=== PATIENT | male | born 1990 | race African-American/Black ===

== ENCOUNTER 2018-03-19 04:45 | Emergency (ER) | payer MEDICAID ==
[~2018-03-19] VITALS: Ht 167.6 cm; Wt 59.0 kg
[2018-03-19] MEDS ORDERED: MORPHINE SULFATE 4 MG/ML CPJ (NOT FOR IM USE) IV STA (05:24)
[2018-03-19] MEDS ORDERED: ONDANSETRON HCL 4MG/2ML VIAL IV STA (05:24)
[2018-03-19] MEDS ORDERED: FAMOTIDINE 20MG/2ML VIAL IV STA (05:24)
[2018-03-19] MEDS ORDERED: SODIUM CHLORIDE 0.9% 1,000 ML IV ONE (05:24)
[2018-03-19] MEDS ORDERED: LEVETIRACETAM 500MG PREMIX 100 ML IV ONE (05:30)
[2018-03-19 06:22] LABS: BASOPHILS % 0.4 % (0.0-2.0); EOSINOPHILS % 0.5 % (0.0-5.0); HEMATOCRIT. 42.7 % (42.0-52.0); HEMOGLOBIN. 14.6 g/dL (14.0-18.0); LYMPHOCYTES % 16.3 % (20.0-50.0); MEAN CORPUSCULAR VOLUME 96.2 fL (80.0-94.0); MEAN PLATELET VOLUME 8.2 fl (7.4-10.4); NEUTROPHILS % 78.8 % (40.0-76.0); PLATELET 249 x1000/uL (130-400); RED BLOOD CELL COUNT 4.44 mill/uL (4.7-6.1); RED CELL DISTRIBUTION WIDTH 12.7 % (11.6-14.6)
[2018-03-19 06:29] LABS: PROTHROMBIN TIME 10.3 sec (9.4-11.6)
[2018-03-19 06:35] LABS: AMMONIA 19 uMol/L (<32)
[2018-03-19 06:36] LABS: CHLORIDE 105 mEq/L (98-107)
[2018-03-19 06:40] LABS: ETHANOL BLOOD < 10 mg/dL
[2018-03-19 06:45] LABS: CREATINE KINASE 109 IU/L (39-308)
[2018-03-19 06:53] LABS: CARBAMAZEPINE < 0.5 ug/mL (4-12); PHENOBARBITAL < 2.1 ug/mL (15.0-40.0); VALPROIC ACID < 3.0 ug/mL (50-100)
[2018-03-19] MEDS ORDERED: PANTOPRAZOLE SODIUM 40 MG/VIAL IV ONE (08:30)
[2018-03-19] MEDS ORDERED: MAGNESIUM/ALUMINUM HYDROXIDE/SIMETHICONE 30ML UDC PO ONE (08:30)
[2018-03-19 08:45] LABS: HEMATOCRIT. 42.4 % (42.0-52.0); HEMOGLOBIN. 14.3 g/dL (14.0-18.0); MEAN CORPUSCULAR HEMOGLOBIN 32.7 pg (28.0-32.0); MEAN CORPUSCULAR VOLUME 97.1 fL (80.0-94.0); MEAN PLATELET VOLUME 8.1 fl (7.4-10.4); PLATELET 218 x1000/uL (130-400); RED BLOOD CELL COUNT 4.37 mill/uL (4.7-6.1); RED CELL DISTRIBUTION WIDTH 12.7 % (11.6-14.6)
[2018-03-19 09:58] LABS: PLATELET ESTIMATE NORMAL
[2018-03-19 10:25] VITALS: BP 130/74
== END 2018-03-19 10:38 | disposition home or self-care (01) ==
LOC: EDBD 04:45 → ER 04:45 → CANBEDREQ 03-27 14:17
DX: G40.909 Epilepsy, unspecified, not intractable, without status epilepticus (principal); R10.33 Periumbilical pain; F12.10 Cannabis abuse, uncomplicated
CPT/HCPCS: 36415; 71045; 74176; 80053; 80156; 80165; 80184; 80185; 82140; 82550; 83605; 83690; 84443; 85025; 85610; 96365; 96375; 99285; C9113; G0482; J1953; J2270; J2405; J3490; J7030; 96367

== ENCOUNTER 2019-01-23 06:54 | Inpatient (IN) | payer MEDICAID ==
[~2019-01-23] VITALS: Ht 170.2 cm; Wt 57.8 kg
[2019-01-23] MEDS ORDERED: LORAZEPAM 2MG/ML CPJ IV ONE (08:00)
[2019-01-23 08:18] LABS: HEMATOCRIT. 44.3 % (42.0-52.0); HEMOGLOBIN. 14.4 g/dL (14.0-18.0); MEAN CORPUSCULAR HEMOGLOBIN 33.1 pg (28.0-32.0); MEAN CORPUSCULAR VOLUME 102.1 fL (80.0-94.0); MEAN PLATELET VOLUME 8.7 fl (7.4-10.4); PLATELET 225 x1000/uL (130-400); RED BLOOD CELL COUNT 4.34 mill/uL (4.7-6.1); RED CELL DISTRIBUTION WIDTH 13.4 % (11.6-14.6)
[2019-01-23 08:20] LABS: CHLORIDE 112 mEq/L (98-107)
[2019-01-23 08:24] LABS: ETHANOL BLOOD < 10 mg/dL
[2019-01-23] MEDS ORDERED: SODIUM CHLORIDE 0.9% 1000ML BAG (SEPSIS BOLUS) IV ONE (08:30)
[2019-01-23 08:40] LABS: PLATELET ESTIMATE NORMAL
[2019-01-23 09:12] LABS: PROTHROMBIN TIME 10.4 sec (9.6-11.0)
[2019-01-23] MEDS ORDERED: LEVETIRACETAM 500MG PREMIX 100 ML IV ONE (09:15)
[2019-01-23] MEDS ORDERED: ONDANSETRON HCL 4MG/2ML INJ IV STA (10:27)
[2019-01-23 10:32] LABS: *AMPHETAMINES SCREEN URINE NEGATIVE (NEGATIVE); *BARBITURATES SCREEN URINE NEGATIVE (NEGATIVE); *BENZODIAZEPINES SCREEN URINE NEGATIVE (NEGATIVE); *COCAINE SCREEN URINE NEGATIVE (NEGATIVE); METHADONE URINE SCREEN NEGATIVE (NEGATIVE); OPIATES URINE SCREEN NEGATIVE (NEGATIVE); PHENCYCLIDINE URINE SCREEN NEGATIVE (NEGATIVE)
[2019-01-23 10:33] LABS: CANNABINOID URINE SCREEN PRESUMTIVE POSITIVE (NEGATIVE)
[2019-01-23] MEDS ORDERED: CEFTRIAXONE 1 G PREMIX 50 ML IV ONE (10:45)
[2019-01-23 15:09] LABS: CLARITY URINE CLEAR (CLEAR); COLOR URINE YELLOW (YELLOW); KETONES URINE TRACE (NEGATIVE); LEUKOCYTE ESTERASE URINE NEGATIVE (NEGATIVE); NITRITE URINE NEGATIVE (NEGATIVE); OCCULT BLOOD URINE 1+ (NEGATIVE); PROTEIN URINE TRACE (NEGATIVE); SPECIFIC GRAVITY URINE 1.012 (1.005-1.030); UROBILINOGEN URINE 0.2 E.U./dL (0.2-1.0)
[2019-01-23 16:00] VITALS: BP 103/57
[2019-01-23 17:20] VITALS: BP 103/57
[2019-01-23] MEDS: MULTIVITAMINS,THER W-MINERALS TABLET PO SCH (18:37)
[2019-01-23] MEDS: FOLIC ACID 1MG TABLET PO SCH (18:37)
[2019-01-23] MEDS: THIAMINE HCL 100MG TABLET PO SCH (18:37)
[2019-01-23] MEDS ORDERED: CHLORPROMAZINE HCL 25MG/1ML AMP IM PRN (18:45)
[2019-01-23] MEDS ORDERED: IPRATROPIUM/ALBUTEROL 0.5-3(2.5)MG/3ML NEB INH PRN (19:15)
[2019-01-23] MEDS ORDERED: ACETAMINOPHEN 325MG TABLET PO PRN (19:15)
[2019-01-23] MEDS ORDERED: ONDANSETRON HCL 4MG/2ML INJ IV PRN (19:15)
[2019-01-23] MEDS ORDERED: LEVE750T4 MT (19:29)
[2019-01-23 20:00] VITALS: BP 118/70
[2019-01-23] MEDS ORDERED: PANTOPRAZOLE SODIUM 40 MG/VIAL IV SCH (21:00)
[2019-01-23] MEDS ORDERED: POTASSIUM CHLORIDE 20MEQ/PACKET PO NR (21:45)
[2019-01-23] MEDS: ENOXAPARIN 40MG/0.4ML SYR SUBCUT SCH (21:54)
[2019-01-23] MEDS: SODIUM CHLORIDE 0.9% 1,000 ML IV SCH (21:55)
[2019-01-23] MEDS: LEVETIRACETAM 500MG TABLET PO SCH (22:14)
[2019-01-23 23:01] LABS: CHLORIDE 105 mEq/L (98-107)
[2019-01-23 23:11] LABS: CREATINE KINASE 417 IU/L (39-308)
[2019-01-24 00:29] VITALS: BP 112/52
[2019-01-24] MEDS: SODIUM CHLORIDE 0.9% 1,000 ML IV SCH ×3 (01:46→15:06)
[2019-01-24 07:14] LABS: BASOPHILS % 0.4 % (0.0-2.0); HEMOGLOBIN. 12.7 g/dL (14.0-18.0); LYMPHOCYTES % 12.7 % (20.0-50.0); MEAN CORPUSCULAR VOLUME 95.9 fL (80.0-94.0); MEAN PLATELET VOLUME 8.3 fl (7.4-10.4); MONOCYTES % 5.5 % (2.0-8.0); NEUTROPHILS % 81.4 % (40.0-76.0); PLATELET 182 x1000/uL (130-400); RED BLOOD CELL COUNT 3.86 mill/uL (4.7-6.1); RED CELL DISTRIBUTION WIDTH 12.8 % (11.6-14.6)
[2019-01-24 07:43] LABS: CHLORIDE 111 mEq/L (98-107)
[2019-01-24 08:00] VITALS: BP 106/71
[2019-01-24] MEDS: THIAMINE HCL 100MG TABLET PO SCH (09:39)
[2019-01-24] MEDS: MULTIVITAMINS,THER W-MINERALS TABLET PO SCH (09:39)
[2019-01-24] MEDS: FOLIC ACID 1MG TABLET PO SCH (09:39)
[2019-01-24] MEDS: LEVETIRACETAM 500MG TABLET PO SCH ×2 (09:42→20:59)
[2019-01-24 12:10] VITALS: BP 105/50
[2019-01-24 16:00] VITALS: BP 104/54
[2019-01-24 20:00] VITALS: BP 112/70
[2019-01-24] MEDS: ENOXAPARIN 40MG/0.4ML SYR SUBCUT SCH (20:00)
[2019-01-24 20:15] VITALS: BP 112/70
[2019-01-24] MEDS ORDERED: FAMOTIDINE 20MG/2ML VIAL IV SCH (21:00)
== END 2019-01-24 21:10 | disposition home or self-care (01) | DRG 53 ==
LOC: ER 06:54 → EDBEDREQ 10:58 → 5WST 11:55 → ENRESERV 12:23 → CANRESERV 14:35 → ENRESERV 14:55
PROVIDERS: ADMIT Internal Medicine; ATTEND Internal Medicine
DX: G40.909 Epilepsy, unspecified, not intractable, without status epilepticus (principal); E87.1 Hypo-osmolality and hyponatremia; E87.2 Acidosis; E87.6 Hypokalemia; F12.90 Cannabis use, unspecified, uncomplicated
CPT/HCPCS: 36415; 70551; 71045; 80048; 80305; 80320; 82542; 82550; 83036; 83605; 84145; 84484; 93005; 93970; 96365; 96366; 96368; 96375; 99285; C9113; J0696; J1650; J1953; J2060; J2405; J3230; J7030; G0480

== ENCOUNTER 2019-10-23 03:09 | Emergency (ER) | payer MEDICAID ==
[~2019-10-23] VITALS: Ht 167.6 cm; Wt 73.0 kg
[~2019-10-23 03:09] MED LIST: LEVE750T4 MT
[2019-10-23] MEDS ORDERED: ONDANSETRON HCL 4MG/2ML INJ IV STA (03:39)
[2019-10-23] MEDS ORDERED: SODIUM CHLORIDE 0.9% 1,000 ML IV ONE (03:39)
[2019-10-23] MEDS ORDERED: LEVETIRACETAM 1000MG/100ML 100 ML IV ONE (03:45)
[2019-10-23 06:20] VITALS: BP 100/61
== END 2019-10-23 07:09 | disposition home or self-care (01) ==
LOC: ER 03:09
DX: G40.909 Epilepsy, unspecified, not intractable, without status epilepticus (principal)
CPT/HCPCS: 96365; 96375; 99283; J1953; J2405; J7030; Z7610

== ENCOUNTER 2022-05-16 12:37 | Emergency (ER) | payer MEDICAID ==
[~2022-05-16] VITALS: Ht 175.3 cm; Wt 70.0 kg
[2022-05-16] MEDS ORDERED: LEVETIRACETAM 1000MG PREMIX 100 ML IV ONE (13:00)
[2022-05-16 13:20] LABS: HEMOGLOBIN. 15.3 g/dL (14.0-18.0); MEAN CORPUSCULAR HEMOGLOBIN 32.5 pg (28.0-32.0); MEAN CORPUSCULAR VOLUME 97.6 fL (80.0-94.0); MEAN PLATELET VOLUME 8.7 fl (7.4-10.4); PLATELET 252 x1000/uL (130-400); RED BLOOD CELL COUNT 4.71 mill/uL (4.7-6.1); RED CELL DISTRIBUTION WIDTH 13.2 % (11.6-14.6)
[2022-05-16 13:26] LABS: CHLORIDE 109 mEq/L (98-107)
[2022-05-16 13:37] LABS: ETHANOL BLOOD < 10 mg/dL
[2022-05-16 14:12] LABS: PLATELET ESTIMATE NORMAL
[2022-05-16 16:08] LABS: CLARITY URINE CLEAR (CLEAR); COLOR URINE YELLOW (YELLOW); KETONES URINE TRACE (NEGATIVE); LEUKOCYTE ESTERASE URINE NEGATIVE (NEGATIVE); NITRITE URINE NEGATIVE (NEGATIVE); OCCULT BLOOD URINE 1+ (NEGATIVE); PROTEIN URINE 1+ (NEGATIVE); SPECIFIC GRAVITY URINE 1.016 (1.005-1.030); UROBILINOGEN URINE 0.2 E.U./dL (0.2-1.0)
[2022-05-16 16:34] LABS: *AMPHETAMINES SCREEN URINE NEGATIVE (NEGATIVE); *BARBITURATES SCREEN URINE NEGATIVE (NEGATIVE); *BENZODIAZEPINES SCREEN URINE NEGATIVE (NEGATIVE); *COCAINE SCREEN URINE NEGATIVE (NEGATIVE); CANNABINOID URINE SCREEN PRESUMTIVE POSITIVE (NEGATIVE); METHADONE URINE SCREEN NEGATIVE (NEGATIVE); OPIATES URINE SCREEN NEGATIVE (NEGATIVE); PHENCYCLIDINE URINE SCREEN NEGATIVE (NEGATIVE)
[2022-05-16] MEDS ORDERED: SODIUM CHLORIDE 0.9% 1,000 ML IV ONE (17:00)
[2022-05-16] MEDS ORDERED: LEVE750T4 MT (17:03)
[2022-05-16 19:36] VITALS: BP 114/57
== END 2022-05-16 19:43 | disposition home or self-care (01) ==
LOC: ER 13:06
DX: G40.509 Epileptic seizures related to external causes, not intractable, without status epilepticus (principal); I49.9 Cardiac arrhythmia, unspecified
CPT/HCPCS: 36415; 70450; 80053; 80305; 80320; 81003; 82962; 85025; 93005; 96365; 99285; J1953; J7030; G0480

== ENCOUNTER 2022-08-11 04:59 | Emergency (ER) | payer MEDICAID ==
[~2022-08-11] VITALS: Ht 175.3 cm; Wt 75.0 kg
[2022-08-11] MEDS ORDERED: LEVETIRACETAM 1000MG PREMIX 100 ML IV ONE (05:30)
[2022-08-11 05:48] LABS: BASOPHILS % 0.6 % (0.0-2.0); EOSINOPHILS % 0.5 % (0.0-5.0); HEMATOCRIT. 39.7 % (42.0-52.0); HEMOGLOBIN. 13.5 g/dL (14.0-18.0); LYMPHOCYTES % 14.4 % (20.0-50.0); MEAN CORPUSCULAR HEMOGLOBIN 33.1 pg (28.0-32.0); MEAN CORPUSCULAR VOLUME 97.4 fL (80.0-94.0); MONOCYTES % 3.8 % (2.0-8.0); NEUTROPHILS % 80.7 % (40.0-76.0); PLATELET 218 x1000/uL (130-400); RED BLOOD CELL COUNT 4.08 mill/uL (4.7-6.1); RED CELL DISTRIBUTION WIDTH 12.9 % (11.6-14.6)
[2022-08-11 05:57] LABS: CHLORIDE 106 mEq/L (98-107)
[2022-08-11 06:04] LABS: ETHANOL BLOOD < 10 mg/dL
[2022-08-11 06:21] LABS: CLARITY URINE CLEAR (CLEAR); COLOR URINE YELLOW (YELLOW); KETONES URINE TRACE (NEGATIVE); LEUKOCYTE ESTERASE URINE NEGATIVE (NEGATIVE); NITRITE URINE NEGATIVE (NEGATIVE); OCCULT BLOOD URINE TRACE (NEGATIVE); PROTEIN URINE 2+ (NEGATIVE); SPECIFIC GRAVITY URINE 1.016 (1.005-1.030); UROBILINOGEN URINE 0.2 E.U./dL (0.2-1.0)
[2022-08-11 06:39] LABS: *AMPHETAMINES SCREEN URINE NEGATIVE (NEGATIVE); *BARBITURATES SCREEN URINE NEGATIVE (NEGATIVE); *BENZODIAZEPINES SCREEN URINE NEGATIVE (NEGATIVE); *COCAINE SCREEN URINE NEGATIVE (NEGATIVE); CANNABINOID URINE SCREEN PRESUMTIVE POSITIVE (NEGATIVE); METHADONE URINE SCREEN NEGATIVE (NEGATIVE); OPIATES URINE SCREEN NEGATIVE (NEGATIVE); PHENCYCLIDINE URINE SCREEN NEGATIVE (NEGATIVE)
[2022-08-11] MEDS ORDERED: LEVE750T4 MT (07:47)
[2022-08-11 09:34] VITALS: BP 122/62
[2022-08-16] MEDS ORDERED: LEVE750T4 MT (15:49)
[2022-08-16] MEDS ORDERED: DEPER5 PO (15:49)
== END 2022-08-11 10:24 | disposition home or self-care (01) ==
LOC: ER 05:11
DX: G40.509 Epileptic seizures related to external causes, not intractable, without status epilepticus (principal); I49.9 Cardiac arrhythmia, unspecified
CPT/HCPCS: 36415; 80053; 80305; 80320; 81003; 82962; 85025; 93005; 96374; 99284; J1953; G0480

== ENCOUNTER 2022-09-19 03:52 | Inpatient (IN) | payer MEDICAID ==
[~2022-09-19] VITALS: Ht 167.6 cm; Wt 68.5 kg
[~2022-09-19 03:52] MED LIST changes: +DEPER5 PO
[2022-09-19 04:43] LABS: HEMATOCRIT. 45.4 % (42.0-52.0); HEMOGLOBIN. 15.4 g/dL (14.0-18.0); MEAN CORPUSCULAR HEMOGLOBIN 33.4 pg (28.0-32.0); MEAN CORPUSCULAR VOLUME 98.4 fL (80.0-94.0); MEAN PLATELET VOLUME 7.7 fl (7.4-10.4); PLATELET 251 x1000/uL (130-400); RED BLOOD CELL COUNT 4.62 mill/uL (4.7-6.1); RED CELL DISTRIBUTION WIDTH 13.2 % (11.6-14.6)
[2022-09-19 04:46] LABS: CHLORIDE 107 mEq/L (98-107)
[2022-09-19 04:55] LABS: CLARITY URINE CLEAR (CLEAR); COLOR URINE YELLOW (YELLOW); KETONES URINE TRACE (NEGATIVE); LEUKOCYTE ESTERASE URINE NEGATIVE (NEGATIVE); NITRITE URINE NEGATIVE (NEGATIVE); OCCULT BLOOD URINE 2+ (NEGATIVE); PROTEIN URINE 1+ (NEGATIVE); SPECIFIC GRAVITY URINE 1.014 (1.005-1.030); UROBILINOGEN URINE 0.2 E.U./dL (0.2-1.0)
[2022-09-19 05:05] LABS: ETHANOL BLOOD < 10 mg/dL
[2022-09-19] MEDS ORDERED: ONDANSETRON HCL 4MG/2ML INJ IV ONE (05:15)
[2022-09-19] MEDS ORDERED: SODIUM CHLORIDE 0.9% 1,000 ML IV ONE (05:15)
[2022-09-19] MEDS ORDERED: LEVETIRACETAM 1000MG PREMIX 200 ML IV ONE (05:15)
[2022-09-19 05:50] LABS: *AMPHETAMINES SCREEN URINE NEGATIVE (NEGATIVE); *BARBITURATES SCREEN URINE NEGATIVE (NEGATIVE); *BENZODIAZEPINES SCREEN URINE NEGATIVE (NEGATIVE); *COCAINE SCREEN URINE NEGATIVE (NEGATIVE); CANNABINOID URINE SCREEN PRESUMTIVE POSITIVE (NEGATIVE); METHADONE URINE SCREEN NEGATIVE (NEGATIVE); OPIATES URINE SCREEN NEGATIVE (NEGATIVE); PHENCYCLIDINE URINE SCREEN NEGATIVE (NEGATIVE)
[2022-09-19 08:03] LABS: PLATELET ESTIMATE NORMAL
[2022-09-19] MEDS ORDERED: MECLIZINE 25MG TABLET PO ONE (11:45)
[2022-09-19] MEDS ORDERED: METOCLOPRAMIDE HCL 10MG/2ML VIAL IV ONE (11:45)
[2022-09-19 15:45] VITALS: BP 114/62
[2022-09-19] MEDS ORDERED: LORAZEPAM 2MG/ML CPJ IV PRN (15:45)
[2022-09-19] MEDS ORDERED: ACETAMINOPHEN 325MG TABLET PO PRN (15:45)
[2022-09-19] MEDS ORDERED: ONDANSETRON HCL 4MG/2ML INJ IV PRN (15:45)
[2022-09-19 16:00] VITALS: BP 114/62
[2022-09-19 20:00] VITALS: BP 126/85
[2022-09-19] MEDS: LEVETIRACETAM 500MG TABLET PO SCH (20:34)
[2022-09-19] MEDS ORDERED: LEVETIRACETAM 500MG TABLET PO SCH (21:00)
[2022-09-20] VITALS: BP 120/85
[2022-09-20 04:00] VITALS: BP 112/86
[2022-09-20 08:00] VITALS: BP 110/66
[2022-09-20] MEDS: LEVETIRACETAM 500MG TABLET PO SCH (08:36)
[2022-09-20 12:00] VITALS: BP 105/63
[2022-09-20] MEDS ORDERED: LEVE1000 MT (13:08)
[2022-09-20 14:28] VITALS: BP 105/63
== END 2022-09-20 15:04 | disposition home or self-care (01) | DRG 53 ==
LOC: ER 03:52 → 7WST 12:36 → ENRESERV 15:50
PROVIDERS: ADMIT Internal Medicine; ATTEND Internal Medicine
DX: G40.909 Epilepsy, unspecified, not intractable, without status epilepticus (principal); D72.829 Elevated white blood cell count, unspecified; F12.90 Cannabis use, unspecified, uncomplicated; Z79.899 Other long term (current) drug therapy; T42.6X6A Underdosing of other antiepileptic and sedative-hypnotic drugs, initial encounter
CPT/HCPCS: 36415; 74176; 80053; 80305; 80320; 81003; 82542; 82962; 84443; 84484; 85025; 93005; 99285; J1953; J2405; J2765; J7030; G0480